=== PATIENT | male | born 1965 | race Caucasian/White ===

== ENCOUNTER 2020-04-17 13:22 | Inpatient (IN) | payer MEDICARE, OTHER ==
[~2020-04-17] VITALS: Ht 177.8 cm; Wt 84.1 kg
[2020-04-17 14:23] LABS: BASOPHILS ABSOLUTE AUTO 0.07 K/mm3 (0.00-0.23); BASOPHILS PERCENT AUTO 1 % (0-2); EOSINOPHILS ABSOLUTE AUTO 0.15 K/mm3 (0.00-0.68); EOSINOPHILS PERCENT AUTO 3 % (0-6); Hematocrit 35.5 % (37.0-53.0); Hemoglobin 10.8 g/dL (13.5-17.5); IMMATURE GRAN ABSOLUTE AUTO 0.01 K/mm3 (0.00-0.10); IMMATURE GRAN PERCENT AUTO 0 % (0-1); LYMPHOCYTES ABSOLUTE AUTO 0.63 K/mm3 (0.84-5.20); LYMPHOCYTES PERCENT AUTO 11 % (21-46); MONOCYTES ABSOLUTE AUTO 0.48 K/mm3 (0.16-1.47); MONOCYTES PERCENT AUTO 8 % (4-13); Mean Corpuscular HGB 27.8 pg (26.0-34.0); Mean Corpuscular HGB Conc 30.4 g/dL (31.5-36.5); Mean Corpuscular Volume 92 fL (80-100); Mean Platelet Volume 10.4 fL (9.1-12.4); NEUTROPHILS ABSOLUTE AUTO 4.66 K/mm3 (1.96-9.15); NEUTROPHILS PERCENT AUTO 78 % (41-73); Platelet Count 314 K/mm3 (150-400); RDW Coefficient Variation 14.5 % (11.7-14.2); RDW Standard Deviation 47.9 fL (35.1-46.3); Red Blood Cell Count 3.88 M/mm3 (4.30-5.90)
[2020-04-17 14:47] LABS: Albumin, Blood 2.4 g/dL (3.4-5.0); Albumin/Globulin Ratio 0.5 (0.8-1.8); Bilirubin, Total 0.4 mg/dL (0.1-1.0); Bun/Creatinine Ratio 8.6 (12.0-20.0); Calcium, Blood 8.9 mg/dL (8.5-10.1); Creatinine, Blood 4.88 mg/dL (0.60-1.20); Globulin, Blood 4.5 g/dL (2.2-4.0); Total Protein, Blood 6.9 g/dL (6.4-8.2); Troponin I 0.114 ng/mL (0.000-0.040)
[2020-04-17] MEDS ORDERED: NOVOLOG FL100 UNIT/3 (15:25)
[2020-04-17] MEDS ORDERED: CARBIDOPA-LEVO1 EA15 PO (15:26)
[2020-04-17] MEDS ORDERED: ROPINIROLE HCL0.5 MG PO (15:26)
[2020-04-17] MEDS ORDERED: HYDR10 PO (15:27)
[2020-04-17] MEDS ORDERED: LOSA50 PO (15:28)
[2020-04-17] MEDS ORDERED: Catapres0.2 MG PO (15:29)
[2020-04-17] MEDS ORDERED: AURYXIA210 MG PO (15:29)
[2020-04-17] MEDS ORDERED: FURO80 (15:30)
[2020-04-17] MEDS ORDERED: GABA300 PO (15:30)
[2020-04-17] MEDS ORDERED: LANTUS SOL100 UNIT/1 SC (15:32)
[2020-04-17] MEDS ORDERED: CLON.2 PO (15:54)
[2020-04-17] MEDS ORDERED: PRAV20 PO (15:59)
[2020-04-17] MEDS ORDERED: PROP120ER PO (16:00)
[2020-04-17] MEDS ORDERED: Calcium Acetat667 MG PO ×2 (16:00→16:01)
[2020-04-17 16:56] LABS: CHOL/HDL RATIO 3.5; Cholesterol 176 mg/dL (50-200); HDL Cholesterol 50 mg/dL (>39); LDL/HDL RATIO 2.1; Low Density Lipoprotein Chol 106 mg/dL (0-110); Triglycerides 98 mg/dL (30-160); Very Low Density Lipoprot Chol 19 mg/dL (6-32)
--- NOTE | 2020-04-17 18:21 | NUR ---
1755 PT ARRIVED TO MEDICAL FLOOR FROM ER VIA W/C. PT TRANSFERED TO BED INDEPENDENTLY. PT DENIES CP AND SOB. DR. GARCIA NOTIFIED OF CONSULT, HE REQUESTED DIESEL DRAGLINE OPERATOR BE CALLED IN TO SET PT UP WITH PD TONIGHT. Nick FLEMING, CRISPIN NOTIFIED OF DR. GARCIA'S ORDERS.
--- NOTE | 2020-04-17 20:44 | NUR ---
DIALYSIS-PD CONNECTED TO PD TX PER PROTOCAL. 2 X 2.5% DEXTROSE DIANEAL 6L BAGS WITH 30U OF INSULIN. 8HRS 50 MIN, [id number] ML TOTAL VOLUME, 2000ML DWELL VOLUME, 5 EXCHANGES, 1 HR 20 MIN DWELL TIME, 0 LAST FILL. SITE CLEAR BUT ALITTLE CRUSTY, CLEANED AND DRESSED. TALKED TO CRISPIN PATEL,
[2020-04-18 01:59] LABS: BASOPHILS ABSOLUTE AUTO 0.07 K/mm3 (0.00-0.23); BASOPHILS PERCENT AUTO 1 % (0-2); EOSINOPHILS ABSOLUTE AUTO 0.27 K/mm3 (0.00-0.68); EOSINOPHILS PERCENT AUTO 5 % (0-6); Hematocrit 33.9 % (37.0-53.0); Hemoglobin 10.2 g/dL (13.5-17.5); IMMATURE GRAN ABSOLUTE AUTO 0.03 K/mm3 (0.00-0.10); IMMATURE GRAN PERCENT AUTO 1 % (0-1); LYMPHOCYTES ABSOLUTE AUTO 0.78 K/mm3 (0.84-5.20); LYMPHOCYTES PERCENT AUTO 13 % (21-46); MONOCYTES ABSOLUTE AUTO 0.32 K/mm3 (0.16-1.47); MONOCYTES PERCENT AUTO 5 % (4-13); Mean Corpuscular HGB 27.3 pg (26.0-34.0); Mean Corpuscular HGB Conc 30.1 g/dL (31.5-36.5); Mean Corpuscular Volume 91 fL (80-100); Mean Platelet Volume 10.7 fL (9.1-12.4); NEUTROPHILS ABSOLUTE AUTO 4.46 K/mm3 (1.96-9.15); NEUTROPHILS PERCENT AUTO 75 % (41-73); Platelet Count 340 K/mm3 (150-400); RDW Coefficient Variation 14.5 % (11.7-14.2); RDW Standard Deviation 48.3 fL (35.1-46.3); Red Blood Cell Count 3.73 M/mm3 (4.30-5.90); White Blood Cell Count 5.93 K/mm3 (4.00-11.30)
[2020-04-18 02:25] LABS: Albumin, Blood 2.2 g/dL (3.4-5.0); Anion Gap 8 mmol/L (6-16); Blood Urea Nitrogen 45 mg/dL (8-24); Bun/Creatinine Ratio 7.8 (12.0-20.0); CO2, Blood 33 mmol/L (21-32); Calcium, Blood 8.6 mg/dL (8.5-10.1); Chloride, Blood 96 mmol/L (98-108); Creatinine, Blood 5.75 mg/dL (0.60-1.20); Glomerular Filtration Rate 11 (60-); Glucose, Blood 198 mg/dL (70-99); Magnesium, Blood 2.3 mg/dL (1.6-2.4); Phosphorus, Blood 5.8 mg/dL (2.5-4.9); Sodium, Blood 137 mmol/L (136-145)
--- NOTE | 2020-04-18 05:26 | NUR ---
SHIFT SUMMARY LYING IN SEMI FOWLERS WITH EYES CLOSED. AAO X4 WITH CONFUSION NOTED AT TIMES. ASSISTED WITH AMBULATION TO COMMODE SEVERAL TIMES THIS SHIFT. PT HAS UNSTEADY GAIT AND REQUIRES FWW AND GAIT BELT FOR STABILITY. BEDSIDE PD ONGOING THROUGH SHIFT, NO ALARMS NOTED. DENIES FURTHER NEEDS OR WANTS AT THIS TIME. SAFETY MEASURES IN PLACE. WILL CONTINUE TO MONITOR AND GIVE HAND OFF TO ONCOMING SHIFT USING SBAR.
--- NOTE | 2020-04-18 08:07 | NUR ---
DIALYSIS-PD 0730 PT C/O H/A. T 99.8. PD FLUID SLIGHTLY CLOUDY. PT ALERT AND ORIENTED. ID [id number] ML. UF [id number] ML. TX DC'ED PER PROTOCAL.
--- NOTE | 2020-04-18 13:04 | NUR ---
Echocardiogram completed.
--- NOTE | 2020-04-18 18:39 | NUR ---
SHIFT SUMMARY. A&OX4, CBA WITH FWW TO BATHRROOM, PT HAS UNSTEADY GAIT AND LOOSES BALANCE EASILY. PT DENIES PAIN, SOB, N/V. GOOD MEAL INTAKE. ECHO COMPLETED THIS AFTERNOON, DR. JACKSON CONSULTED BY DR. LEONARDO ECHO WAS ABNORMAL. DR. JACKSON EVALUATED PT AND PT IS TO HAVE ANGIOGRAM TOMORROW, PT TO BE NPO AFTER MIDNIGHT, PT AWARE. PT RECIEVING SHOWER WITH ASSITANCE AT THIS TIME. PT TO RECIEVE PD DURING THE NIGHT. NO OTHER CHANGES OR CONCERNS.
--- NOTE | 2020-04-18 20:11 | NUR ---
DIALYSIS-PD PT JUST COMPLETED A SHOWER. CHANGED HD PERMACATH DRESSING, SITE CLEAR. CHANGED THE PD CATH DRESSING WITH ANTIBIOTIC OINTMENT PER PROTOCAL. CONNECTED PT TO TX WITH 2-6LITER BAGS OF 2.5% DEXTROSE DIANEAL BAGS. REGULAR INSULIN 30U PER BAG. CONNECTED AT 1945. PT APPEARS TO FEEL BETTER THAN LAST NIGHT.
[2020-04-19 05:08] LABS: Hematocrit 31.6 % (37.0-53.0)
[2020-04-19 05:25] LABS: Albumin, Blood 1.9 g/dL (3.4-5.0); Anion Gap 9 mmol/L (6-16); Blood Urea Nitrogen 55 mg/dL (8-24); Bun/Creatinine Ratio 9.6 (12.0-20.0); CO2, Blood 30 mmol/L (21-32); Chloride, Blood 95 mmol/L (98-108); Creatinine, Blood 5.75 mg/dL (0.60-1.20); Glomerular Filtration Rate 11 (60-); Glucose, Blood 248 mg/dL (70-99); Magnesium, Blood 2.3 mg/dL (1.6-2.4); Phosphorus, Blood 6.3 mg/dL (2.5-4.9); Potassium, Blood 4.2 mmol/L (3.5-5.5); Sodium, Blood 134 mmol/L (136-145)
--- NOTE | 2020-04-19 05:42 | NUR ---
SHIFT SUMMARY LYING IN SEMI FOWLERS WITH EYES CLOSED. AAO X4 WITH CONFUSION NOTED AT TIMES. PT HAS UNSTEADY GAIT AND REQUIRES FWW AND GAIT BELT FOR STABILITY. BEDSIDE PD ONGOING THROUGH SHIFT, NO ALARMS NOTED. HAS BEEN NPO PAST [place] FOR HEART CATH THIS AM. DENIES FURTHER NEEDS OR WANTS AT THIS TIME. SAFETY MEASURES IN PLACE. WILL CONTINUE TO MONITOR AND GIVE HAND OFF TO ONCOMING SHIFT USING SBAR.
--- NOTE | 2020-04-19 06:56 | NUR ---
PT AWAKE / ALERT / ORIENTED THIS AM. NO VERB DISCOMFORT. OVERNIGHT CCPD COMPLETE. POOR UF NOTED NOTED. 25 ML TOTAL PT AESEPTICALLY DISCONNECTED AND CAPPED. CYCLER STRIPPED AND CLEANED. DR GARCIA CONSULTED FOR NEW ORDERS / PLAN OF CARE.
[2020-04-19 09:39] LABS: Influenza A, PCR Negative (NEGATIVE); Influenza B, PCR Negative (NEGATIVE); Resp Syncytial Virus, PCR Negative (NEGATIVE); SARS-Cov-2 (COVID-19) PCR, MMC Negative (NEGATIVE)
--- NOTE | 2020-04-19 11:31 | NUR ---
ARRIVAL TO ICU 1118 - PT ARRIVES TO ICU AT THIS TIME. HE IS AWAKE BUT IS DROWSY AND SLOW TO RESPOND. NO PAIN AT THIS TIME. NSR, HR 60S. BP WNL. PTS UPDATED ON PHONE BY RN. TR BAND SECURED ON R WRIST; RADIAL PULSE PALPABLE. SECURED IN ARMBOARD. WILL CONTINUE MONITORING PT AND WRIST. PREPARING FOR TRANSFER FOR BYPASS SURGERY.
--- NOTE | 2020-04-19 13:25 | NUR ---
TO MINING ENGINEERING TECHNOLOGIST AT 10AM FOR ANGIOGRAM. THE PLAN IS TO DIALIZE AFTERWARD. HE HAS MOSTLY SLEPT THIS MORNING AND BEEN NPO. LONG ACTING INSULIN HELD. SC HEPARIN ALSO HELD. TELE NSR.HE HAS DENIED PAIN THIS MORNING. NO CP. WILL GO TO ICU 11 POST PROCEDURE.
--- NOTE | 2020-04-19 15:15 | NUR ---
ASSUMED PT CARE UPON RETURN FOR HEMODIALYSIS. PT [id number] 5/10 LEFT CHEST PAIN AND IS CLUTCHING HIS CHEST. O2 @ 2 LITERS N/C PLACED. ECG SHOWS SR-BP ELEVATED-SEE FLOWSHEET FOR FREQUENT VS. LUNGS DIMINISHED IN THE BASES. SATS>90% ON RA. NO NOTED JVD. ABDOMEN DISTENDED AND MEPILEX DRESSING C/D/I TO PERITONEAL DIALYSIS CATH. DR. JACKSON CONTACTED REGARDING CP-ORDERS GIVEN TO INITIATE NITRO AND HEPARIN DRIPS. DISCUSSED WITH PT TRANSFER TO [facility] FOR CABG-PT IS PROTESTANT AND REFUSES BLOOD PRODUCTS, BUT IS OK WITH "HESPAN AND OTHER NON BLOOD PRODUCTS." RIGHT RADIAL SITE WITH TR BAND IN PLACE, BUT AIR REMOVED BY CRISPIN GÓMEZ.
--- NOTE | 2020-04-19 15:23 | NUR ---
TR BAND TR BAND DEFLATED AND REMOVED AT 1500. CLOTH DOT DRESSING APPLIED AND ARMBOARD SECURED AROUND WRIST. REPORT GIVEN TO TYRELL ROA.
--- NOTE | 2020-04-19 16:01 | NUR ---
PT DENIES NAUSEA AFTER BEING MEDICATED WITH ZOFRAN. ABLE TO TAKE APRESOLINE PO WITH SIP OF WATER. PT REMAINS HYPERTENSIVE AND CP 7/10 DESPITE NITRO DRIP @ 50 MCG/MIN. DR. JACKSON OFFICE CALLED TO UPDATE. PT/PTT PENDING. PT TO BE TRANSFERED TO [facility]. WILL UPDATE DR. JACKSON AND THEN CALL REPORT AND FOR TRANSPORT [facility]IA [facility].
[2020-04-19 16:06] LABS: Prothrombin Time Results 10.7 Sec (9.7-11.5)
--- NOTE | 2020-04-19 16:07 | NUR ---
CONSENT FOR TRANSFER OBTAINED BY CRISPIN HARRY. PT CONTINUES TO REPORTS 10/30 CP AND IS CLUTCHING HIS CHEST-NITRO TITRATED UP TO 60 MCG/MIN.
--- NOTE | 2020-04-19 16:12 | NUR ---
DR. JACKSON NOTIFIED THAT PT IS STILL HAVING CP DESPITE NITRO DRIP @ 60 MCG/MIN. NO NEW ORDERS-[facility]
--- NOTE | 2020-04-19 16:49 | NUR ---
CBG 46 PT GIVEN 2 CRANBERRY JUICE AND NATHANAEL CRACKERS. PT STILL REPORTING 3/10 CHEST PAIN WITH NITRO DRIP @ 75 MCG/MIN.
--- NOTE | 2020-04-19 16:57 | NUR ---
[place] [facility] [place].
--- NOTE | 2020-04-19 17:10 | NUR ---
1 AMP D50 GIVEN. PT DENIES CP WITH NIRTO @ 80 MCG/MIN.
--- NOTE | 2020-04-19 17:13 | NUR ---
CBG 202-REPORT GIVEN TO EMS IN PREP FOR TRANSFER TO [facility].
--- NOTE | 2020-04-19 17:40 | NUR ---
PT DENIES CP WITH NITRO DRIP @ 80 MCG/MIN. HEPARIN DRIP CONTINUES @ 13 UNITS/KG/MIN. REPORT GIVEN TO ANH-PHYSICIAN. PHONED CRISPIN CRISTOBAL @ [facility] & NOTIFIED THAT PT IS IN TRANSIT AND ALSO, RN MADE AWARE THAT HEPARIN DRIP HAS BEEN INITIATED, THAT PT NOW PAINFREE WITH NITRO DRIP @ 80MCG/MIN. RN ALSO MADE AWARE OF HYPOGLYCEMIC EPISODE AND THAT 1 AMP OF D50 GIVEN WITH RE-CHECK CBG 202.
== END 2020-04-19 17:45 | disposition short-term general hospital (02) | DRG 280 ==
LOC: ER 13:22 → MEDS 13:23 → ICUW 04-19 11:11
PROVIDERS: Emergency Medicine; Family Medicine; Internal Medicine Cardiovascular Disease; Internal Medicine Nephrology; Pharmacist; ADMIT Internal Medicine
PROC: 3E1M39Z Irrigation of Peritoneal Cavity using Dialysate, Percutaneous Approach (ICD-10-PCS; 2020-04-17)
PROC: 3E1M39Z Irrigation of Peritoneal Cavity using Dialysate, Percutaneous Approach (ICD-10-PCS; 2020-04-18)
PROC: 4A023N7 Measurement of Cardiac Sampling and Pressure, Left Heart, Percutaneous Approach (ICD-10-PCS; principal; 2020-04-19)
PROC: B2111ZZ Fluoroscopy of Multiple Coronary Arteries using Low Osmolar Contrast (ICD-10-PCS; 2020-04-19)
PROC: 5A1D70Z Performance of Urinary Filtration, Intermittent, Less than 6 Hours Per Day (ICD-10-PCS; 2020-04-19)
DX: I21.4 Non-ST elevation (NSTEMI) myocardial infarction (principal); N18.6 End stage renal disease; I13.2 Hypertensive heart and chronic kidney disease with heart failure and with stage 5 chronic kidney disease, or end stage renal disease; I50.20 Unspecified systolic (congestive) heart failure; Z20.828 Contact with and (suspected) exposure to other viral communicable diseases; I25.10 Atherosclerotic heart disease of native coronary artery without angina pectoris; E11.22 Type 2 diabetes mellitus with diabetic chronic kidney disease; E11.40 Type 2 diabetes mellitus with diabetic neuropathy, unspecified; J44.9 Chronic obstructive pulmonary disease, unspecified; D64.9 Anemia, unspecified; E78.5 Hyperlipidemia, unspecified; I08.3 Combined rheumatic disorders of mitral, aortic and tricuspid valves; E87.70 Fluid overload, unspecified; E88.09 Other disorders of plasma-protein metabolism, not elsewhere classified; E83.39 Other disorders of phosphorus metabolism; G25.81 Restless legs syndrome; Z99.2 Dependence on renal dialysis; Z87.891 Personal history of nicotine dependence; Z79.899 Other long term (current) drug therapy; Z79.4 Long term (current) use of insulin; Z88.8 Allergy status to other drugs, medicaments and biological substances
CPT/HCPCS: 0241U; 36415; 71046; 76937; 80053; 80061; 80069; 82947; 83036; 83735; 83880; 84443; 84484; 85014; 85018; 85025; 85347; 85610; 85730; 93005; 93010; 93306; 93458; 96372; 99152; 99153; 99285-25; A9270-GY; C1769; C1887; C1894; G0378; J1644; J1815; J2250; J2270; J2405; J3010; J7030; J7040; J7050; Q9967